=== PATIENT | female | born 1975 | race Caucasian/White ===

== ENCOUNTER 2023-04-08 17:37 | Emergency (ER) | payer OTHER, SELFPAY | END 2023-04-08 19:50 | disposition home or self-care (01) | LOC: ERS 17:37 | DX: M25.562 Pain in left knee (principal); F17.290 Nicotine dependence, other tobacco product, uncomplicated; W01.0XXA Fall on same level from slipping, tripping and stumbling without subsequent striking against object, initial encounter; Y92.010 Kitchen of single-family (private) house as the place of occurrence of the external cause ==